=== PATIENT | male | born 1965 | race Caucasian/White ===

== ENCOUNTER 2018-01-26 00:47 | Inpatient (IN) | payer OTHER ==
[~2018-01-26] VITALS: Ht 180.3 cm; Wt 89.8 kg
[2018-01-26 02:42] LABS: CARBON DIOXIDE 25.8 mmol/L (21-32); CREATININE SERUM 1.9 mg/dL (0.7-1.3); POTASSIUM SERUM 3.9 mmol/L (3.5-5.1)
[2018-01-26 02:44] LABS: BILIRUBIN TOTAL 6.48 mg/dL (0.20-1.00); TOTAL PROTEIN, SERUM 7.3 g/dL (6.4-8.2)
[2018-01-26 02:45] LABS: ALBUMIN 1.8 g/dL (3.4-5.0)
[2018-01-26 03:08] LABS: PLATELET COUNT 159 x10^3mcL (130-400)
[2018-01-26 03:09] LABS: RED CELL DISTRIBUTION WIDTH 21.1 % (11.5-14.5)
[2018-01-26 03:40] LABS: BAND NEUTROPHIL 14 % (0-10); METAMYELOCTE 3 % (0-2); MONOCYTE 2 % (0-7); PLATELET MORPHOLOGY LARGE PLATELET SEEN; SEGMENTED NEUTROPHILS 72 % (37-75); ovalocyte/elliptocyte 1+; rbc morphology (normal/abnorm) ABNORMAL (NORMAL)
[2018-01-26] MEDS ORDERED: HUMALOG MIX 75/10 ML SQ (03:47)
[2018-01-26] MEDS ORDERED: JANUMET 50-1,01 EACH PO (03:47)
[2018-01-26] MEDS ORDERED: AMARYL4 MG PO (03:48)
[2018-01-26] MEDS ORDERED: HYDROCHLOROTHIA25 MG PO (03:48)
[2018-01-26] MEDS ORDERED: OMEPRAZOLE40 M1 PO (03:48)
[2018-01-26] MEDS ORDERED: SIMVASTATIN40 M1 PO (03:48)
[2018-01-26 05:19] LABS: microscopic required? YES; urine erythrocyte 2+ (NEGATIVE)
[2018-01-26 06:15] VITALS: BP 96/56
[2018-01-26 08:33] VITALS: BP 96/56
[2018-01-26 09:09] VITALS: BP 92/56
[2018-01-26 13:04] VITALS: BP 97/58
[2018-01-26 16:43] VITALS: BP 97/58
[2018-01-26 20:10] VITALS: BP 105/62
[2018-01-27 05:00] VITALS: BP 113/60
[2018-01-27 06:27] LABS: BASOPHIL % 0.4 % (0-2); PLATELET COUNT 150 x10^3mcL (130-400)
[2018-01-27 07:07] LABS: ALKALINE PHOSPHATASE 403 U/L (46-116); ALT/SGPT 53 U/L (16-63); AST/SGOT 69 U/L (15-37); BILIRUBIN TOTAL 7.3 mg/dL (0.20-1.00); CALCIUM 7.2 mg/dL (8.5-10.1); CARBON DIOXIDE 21.4 mmol/L (21-32); CHLORIDE SERUM 102 mmol/L (98-107); CREATININE SERUM 1.2 mg/dL (0.7-1.3); GFR1 > 60 mL/min; GLUCOSE SERUM 292 mg/dL (74-106); POTASSIUM SERUM 3.7 mmol/L (3.5-5.1); SODIUM SERUM 135 mmol/L (136-145); TOTAL PROTEIN, SERUM 6.3 g/dL (6.4-8.2)
[2018-01-27 07:09] LABS: ALBUMIN 1.4 g/dL (3.4-5.0)
[2018-01-27 07:18] LABS: RED CELL DISTRIBUTION WIDTH 21.4 % (11.5-14.5)
[2018-01-27 08:50] VITALS: BP 115/66
[2018-01-27 12:11] VITALS: BP 111/60
[2018-01-27 17:19] VITALS: BP 107/67
[2018-01-27 20:36] VITALS: BP 110/58
[2018-01-28 05:48] VITALS: BP 105/67
[2018-01-28 06:25] LABS: PLATELET COUNT 168 x10^3mcL (130-400)
[2018-01-28 06:46] LABS: BASOPHIL % 0 % (0-2); RED CELL DISTRIBUTION WIDTH 21.8 % (11.5-14.5)
[2018-01-28 06:49] LABS: CALCIUM 7.9 mg/dL (8.5-10.1); CARBON DIOXIDE 23.2 mmol/L (21-32); CHLORIDE SERUM 104 mmol/L (98-107); CREATININE SERUM 1.1 mg/dL (0.7-1.3); GFR1 > 60 mL/min; GLUCOSE SERUM 227 mg/dL (74-106); POTASSIUM SERUM 3.6 mmol/L (3.5-5.1); SODIUM SERUM 137 mmol/L (136-145)
[2018-01-28 09:23] VITALS: BP 118/74
[2018-01-28 13:52] VITALS: BP 131/80
[2018-01-28 16:17] VITALS: BP 121/76
[2018-01-28 16:31] VITALS: BP 121/76
[2018-01-28 20:56] VITALS: BP 123/70
[2018-01-28 21:51] VITALS: Ht 180.3 cm; Wt 89.8 kg
[2018-01-29 08:56] VITALS: BP 130/71
[2018-01-29 13:40] VITALS: BP 123/69
[2018-01-29 17:11] VITALS: BP 129/70
[2018-01-29 20:32] VITALS: BP 122/70
[2018-01-29 21:36] VITALS: BP 122/70
== END 2018-01-29 22:49 | disposition short-term general hospital (02) | DRG 872 ==
LOC: ED 00:47 → DU 04:48
PROVIDERS: Emergency Medicine; Internal Medicine Pulmonary Disease
PROC: 3E0234Z Introduction of Serum, Toxoid and Vaccine into Muscle, Percutaneous Approach (ICD-10-PCS; principal; 2018-01-26)
DX: A41.01 Sepsis due to Methicillin susceptible Staphylococcus aureus (principal); L03.113 Cellulitis of right upper limb; M00.031 Staphylococcal arthritis, right wrist; R65.20 Severe sepsis without septic shock; D50.9 Iron deficiency anemia, unspecified; I12.9 Hypertensive chronic kidney disease with stage 1 through stage 4 chronic kidney disease, or unspecified chronic kidney disease; N18.9 Chronic kidney disease, unspecified; E11.22 Type 2 diabetes mellitus with diabetic chronic kidney disease; G89.29 Other chronic pain; M54.5 Low back pain; M19.90 Unspecified osteoarthritis, unspecified site; B95.61 Methicillin susceptible Staphylococcus aureus infection as the cause of diseases classified elsewhere; E11.65 Type 2 diabetes mellitus with hyperglycemia; Z72.89 Other problems related to lifestyle; Z79.4 Long term (current) use of insulin; Z79.899 Other long term (current) drug therapy; Z68.30 Body mass index [BMI] 30.0-30.9, adult; Z23 Encounter for immunization
CPT/HCPCS: 82962; 90732; J0295; J0696; J1650; J1815; J1885; J2543; J3370; J3490; J7030; J7050; Q0092